=== PATIENT | female | born 2005 | race Caucasian/White ===

== ENCOUNTER 2025-02-01 20:19 | Emergency (ER) | payer OTHER ==
[2025-02-01 20:28] VITALS: RESP 16
--- NOTE | 2025-02-01 21:03 | ED ---
ENT HPI - General Chief complaint: ENT Stated complaint: Sore Throat Time Seen by Provider: 02/01/25 20:43 Source: patient, RN notes reviewed Mode of arrival: ambulatory Limitations: no limitations - History of Present Illness Initial comments: This is a 19-year-old female who presents to the emergency department for a sore throat. States that it started a week ago and seems to be getting worse. Her tonsils are swollen and states that she is having difficulty speaking and swallowing due to the discomfort. She has a history of strep throat when she was younger, but has not had it in many years. She believes that she may have had a fever yesterday. Reports minor congestion but otherwise no URI symptoms. Denies any sick contacts. MD complaint: sore throat - Related Data Previous Rx's Medication Instructions Recorded Amoxic-Pot Clav 875-125Mg 1 tab PO Q12HR 10 Days #20 tab 02/01/25 [Augmentin 875-125] Ketorolac [Toradol] 10 mg PO Q6HR PRN #15 tab 02/01/25 Lidocaine Viscous [Xylocaine 5 - 10 ml PO Q4-6H PRN #100 ml 02/01/25 Viscous 2%] Allergies Allergy/AdvReac Type Severity Reaction Status Date / Time risperidone [From Risperdal] Allergy Swelling Verified 02/01/25 20:28 Review of Systems ROS Statement: Those systems with pertinent positive or pertinent negative responses have been documented in the HPI. ROS Other: All systems not noted in ROS Statement are negative. Past Medical History Past Medical History: No Reported History History of Any Multi-Drug Resistant Organisms: None Reported Past Surgical History: No Surgical Hx Reported Past Psychological History: Anxiety, Bipolar, Depression Smoking Status: Never smoker Past Alcohol Use History: Rare Past Drug Use History: None Reported General Exam Limitations: no limitations General appearance: alert, in no apparent distress Head exam: Present: atraumatic, normocephalic, normal inspection ENT exam: Present: other (Posterior pharyngeal erythema with tonsillar hypertrophy and exudates) Respiratory exam: Present: normal lung sounds bilaterally. Absent: respiratory distress, wheezes, rales, rhonchi, stridor Cardiovascular Exam: Present: regular rate, normal rhythm Neurological exam: Present: alert, oriented X3, CN II-XII intact Psychiatric exam: Present: normal affect, normal mood Skin exam: Present: warm, dry, intact, normal color. Absent: rash Course Vital Signs 02/01/25 02/01/25 20:26 22:20 Temperature 98.1 F 97.8 F Pulse Rate 96 80 Respiratory 16 16 Rate Blood Pressure 120/83 108/77 O2 Sat by Pulse 98 99 Oximetry Medical Decision Making - Medical Decision Making This is a 19-year-old female who presents to the emergency department for a sore throat. Was pt. sent in by a medical professional or institution? @ -No Did you speak to anyone other than the patient for history? @ -No Did you review nursing and triage notes? @ -Yes, and I agree, it is accurate with regards to the patient's symptoms. Were old charts reviewed? @ -No Differential Diagnosis? @ -Differential Sore Throat: Strep pharyngitis, herpes zoster, COVID, influenza, GERD, allergic rhinitis, mononucleosis, this is not meant to be an all-inclusive list. EKG interpreted by me (3pts min.)? @ -Not obtained X-rays interpreted by me (1pt min.)? @ -Not obtained CT interpreted by me (1pt min.)? @ -Not obtained U/S interpreted by me (1pt. min.)? @ -Not obtained What testing was considered but not performed? (CT, X-rays, U/S, labs)? Why? @ -None What meds were considered but not given? Why? @ -None Did you discuss the management of the patient with other professionals? @ -No Did you reconcile home meds? @ -No Was smoking cessation discussed for >3mins.? @ -No Was critical care preformed (if so, how long)? @ -No Were there social determinants of health that impacted care today? How? (Homelessness, low income, unemployed, alcoholism, drug addiction, transportation, low edu. Level, literacy, decrease access to med. care, long-term, rehab)? @ -No Was there de-escalation of care discussed even if they declined? (Discuss DNR or withdrawal of care, Hospice)? @ -No What co-morbidities impacted this encounter? (DM, HTN, Smoking, COPD, CAD, Cancer, CVA, Hep., AIDS, mental health diagnosis, sleep apnea, morbid obesity)? @ -None Was patient admitted / discharged? @ -Discharged. Rapid strep test negative. COVID, influenza, and RSV testing negative. While the rapid strep test was negative, given the severity and duration of her symptoms, advised that we will treat her with antibiotics. Prescription for Augmentin, Toradol, and viscous lidocaine provided with dosing instructions reviewed. Initial dose administered in the emergency department. She was also given a dose of Decadron in the emergency department to help with swelling and inflammation. Patient discharged home in stable condition. Case discussed with ED attending Dr. Edward. Return precautions reviewed in depth, the patient is instructed to return to the emergency department with any new, worsening, or concerning symptoms. Patient verbalized understanding. Undiagnosed new problem with uncertain prognosis? @ -None Drug Therapy requiring intensive monitoring for toxicity (Heparin, Nitro, Insulin, Cardizem)? @ -None Were any procedures done? @ -None Diagnosis/symptom? @ -Bacterial pharyngitis Acute, or Chronic, or Acute on Chronic? @ -Acute Uncomplicated (without systemic symptoms) or Complicated (systemic symptoms)? @ -Uncomplicated Side effects of treatment? @ -None Exacerbation, Progression, or Severe Exacerbation] @ -Not applicable Poses a threat to life or bodily function? @ -No - Lab Data Lab Results 02/01/25 02/01/25 Range/Units 20:52 20:52 Influenza Type A (PCR) Not Detected (Not Detectd) Influenza Type B (PCR) Not Detected (Not Detectd) RSV (PCR) Not Detected (Not Detectd) SARS-CoV-2 (PCR) Not Detected (Not Detectd) Group A Strep (PCR) NOT DETECTED (Not Detectd) Disposition Clinical Impression: Bacterial pharyngitis Disposition: HOME SELF-CARE Instructions (If sedation given, give patient instructions): Pharyngitis (ED) Additional Instructions: Return to the emergency department with any new, worsening, or concerning symptoms. Take the antibiotic as prescribed for 10 days. Take the Toradol with Tylenol as needed for pain relief. If you choose to take the Toradol, do not take any other anti-inflammatories such as ibuprofen, take one or the other. You can use the viscous lidocaine as needed to help with discomfort. Contact the ENT office listed below. Let them know that you were seen in the emergency department they will schedule you for a follow-up appointment. Prescriptions: Amoxic-Pot Clav 875-125Mg [Augmentin 875-125] 1 tab PO Q12HR 10 Days #20 tab Ketorolac [Toradol] 10 mg PO Q6HR PRN #15 tab PRN Reason: Pain Lidocaine Viscous [Xylocaine Viscous 2%] 5 - 10 ml PO Q4-6H PRN #100 ml PRN Reason: Sore Throat Is patient prescribed a controlled substance at d/c from ED?: No Referrals: Nonstaff,Physician [Primary Care Provider] - 1-2 days Mike Dsouza MD [STAFF PHYSICIAN] - 1-2 days Forms: PH Area PCPs Time of Disposition: 22:04
[2025-02-01] MEDS: dexAMETHasone 2 MG TAB PO STA (21:04)
[2025-02-01] MEDS: LIDOCAINE VISCOUS 2% 15 ML CUP PO ONE (21:05)
[2025-02-01 21:36] LABS: Influenza A Not Detected (Not Detectd); Influenza B Not Detected (Not Detectd); RSV Not Detected (Not Detectd)
[2025-02-01] MEDS: AMOXIC-POT CLAV 875-125MG 1 EACH TAB PO STA (22:18)
[2025-02-01 22:22] VITALS: BP 108/77; PULSE 80; TEMP 97.8
== END 2025-02-01 22:22 | disposition home or self-care (01) ==
LOC: EC 20:19
DX: J02.9 Acute pharyngitis, unspecified (principal); Z11.52 Encounter for screening for COVID-19; Z88.8 Allergy status to other drugs, medicaments and biological substances
CPT/HCPCS: 87651; 87636; 99283; J8540